=== PATIENT | male | born 1960 | race African-American/Black ===

== ENCOUNTER → 2020-05-23 | Outpatient (CLI) | payer OTHER ==
--- NOTE | 2020-05-23 10:25 | RAD ---
C-spine 2 views INDICATION: Neck pain COMPARISON: None. TECHNIQUE: AP and lateral views of the cervical spine were obtained FINDINGS: Anatomic alignment. No fracture. Normal mineralization. There is ossification along the anterior long itudinal ligament. Vertebral body heights and disc spaces are preserved. No significant facet hypertr ophic changes are evident. Soft tissues are unremarkable. IMPRESSION: Normal alignment and mineralization with no fracture or aggressive bony lesions. There is ossificatio n along the anterior longitudinal ligament. L spine 2 views INDICATION: Low back pain COMPARISON: None FINDINGS: Upright AP and lateral views of the lumbar spine were obtained. They show normal alignment with prese rved vertebral body heights and minimal disc space narrowing. There are 6 lumbar type vertebrae, the disc space narrowing is appreciated at L4-L5 with the inferior most lumbar type vertebrae being cons idered L6 for the purposes of this reporting. There is facet hypertrophic change throughout the lumba r spine, most conspicuously at L4-L5 through L6-S1. These likely contribute to varying degrees of for aminal stenosis. Central canal stenosis is also possible but less well demonstrated on the available views. Preliminary joints are unremarkable. Punctate calcifications projecting over the right renal midpole are incidentally noted. IMPRESSION: 6 lumbar type vertebrae with multilevel facet hypertrophic change, likely resulting in varying degree s of foraminal and possibly central canal stenosis, which would be better evaluated with cross-sectio nal imaging if clinically warranted. Electronically signed by: Carlton Cruz MD (05/23/2020 10:22 AM) [id number]
== END ==
LOC: RAD 08:41
PROVIDERS: ATTEND Anesthesiology Pain Medicine
DX: M47.816 Spondylosis without myelopathy or radiculopathy, lumbar region (principal); M54.2 Cervicalgia
CPT/HCPCS: 72040; 72100